=== PATIENT | male | born 1995 | race Caucasian/White ===

== ENCOUNTER 2018-11-10 16:41 | Observation (INO) | payer OTHER ==
[~2018-11-10] VITALS: Ht 177.8 cm; Wt 58.6 kg
[2018-11-10] MEDS ORDERED: ONDANSETRON 4 MG INJ IV STA (17:58)
[2018-11-10] MEDS ORDERED: LACTATED RINGER'S 1,000 ML IV STA (17:58)
[2018-11-10] MEDS ORDERED: morphine 4 MG/ML VIAL IV STA (17:58)
[2018-11-10] MEDS ORDERED: METHYLPREDNISOLONE 125 MG INJ IV ONE (18:00)
--- NOTE | 2018-11-10 21:44 | ERD ---
ER Documentation Chief Complaint Chief Complaint Pt has rectal bleed x 3-4 days and has hx of ulcerative collitis HPI This is a 23-year-old man complaining of 2 weeks of increasing abdominal pain and cramping and increasing frequency of bloody stools. Patient was diagnosed with ulcerative colitis about 8 months ago and has been compliant with budesonide and mesalamine daily. States his stools are usually brown in color but recently he has had blood per rectum with most every bowel movement. His primary glass ribbon machine operator is Dr. Goodman, who he contacted and was referred here to the ED for inpatient management and possible colonoscopy. Patient denies fevers or chills, no chest pain or shortness of breath, no vomiting, no headache or blurry vision. ROS All systems reviewed and are negative except as per history of present illness. Allergies Allergies: Coded Allergies: No Known Allergy (Unverified , 11/10/18) PMhx/Soc History of Surgery: No Anesthesia Reaction: No Hx Neurological Disorder: No Hx Respiratory Disorders: No Hx Cardiac Disorders: No Hx Psychiatric Problems: No Hx Miscellaneous Medical Probl: Yes (ULCERATIVE COLITIS) Hx Alcohol Use: No Hx Substance Use: No Hx Tobacco Use: No Smoking Status: Never smoker FmHx Family History: No diabetes Physical Exam Vitals Vital Signs Date Temp Pulse Resp B/P (MAP) Pulse Ox O2 O2 Flow FiO2 Time Delivery Rate 11/10/18 100.1 89 14 108/71 100 Room Air 21:21 (83) 11/10/18 100.1 90 14 98/63 (75) 100 Room Air 20:17 11/10/18 100.1 94 14 110/74 100 Room Air 19:03 (86) 11/10/18 100.1 97 20 114/82 99 Room Air 17:57 (93) 11/10/18 100.1 104 20 111/73 99 16:56 (86) Physical Exam GENERAL: Well-developed, well-nourished, well-hydrated, moderate discomfort, afebrile CARDIAC: Regular rate and rhythm, no murmurs rubs or gallops LUNGS: Clear bilaterally no wheezing crackles or stridor ABDOMEN: Superficial tenderness over the entire abdomen with voluntary guarding, no rigidity or masses, no psoas sign, no obturator sign SKIN: Warm and dry to touch, no abrasions, contusions, or hematomas, no lacerations, no ecchymosis, no target lesions, and without ulcers EXTREMITIES: No clubbing cyanosis or edema, calves are bilaterally symmetrical, no Homans sign, no popliteal cord sign. Distal pulses equal and bilateral PSYCH: Normal affect without agitation or irritability Result Diagram: 11/10/18 1755 11/10/181754 Results 24 hrs Laboratory Tests Test 11/10/18 17:55 White Blood Count 9.7 10^3/ul Red Blood Count 4.97 10^6/ul Hemoglobin 14.5 g/dl Hematocrit 41.2 % Mean Corpuscular Volume 82.9 fl Mean Corpuscular Hemoglobin 29.2 pg Mean Corpuscular Hemoglobin Concent 35.2 g/dl Red Cell Distribution Width 13.3 % Platelet Count 209 10^3/UL Mean Platelet Volume 11.5 fl Immature Granulocytes % 0.300 % Neutrophils % 68.5 % Lymphocytes % 18.5 % Monocytes % 11.8 % Eosinophils % 0.5 % Basophils % 0.4 % Nucleated Red Blood Cells % 0.0 /100WBC Immature Granulocytes # 0.030 10^3/ul Neutrophils # 6.7 10^3/ul Lymphocytes # 1.8 10^3/ul Monocytes # 1.2 10^3/ul Eosinophils # 0.1 10^3/ul Basophils # 0.0 10^3/ul Nucleated Red Blood Cells # 0.0 10^3/ul Prothrombin Time 14.5 Sec Prothrombin Time Ratio 1.1 INR International Normalized Ratio 1.12 Activated Partial Thromboplast Time 36.9 Sec Sodium Level 139 mmol/L Potassium Level 3.9 mmol/L Chloride Level 102 mmol/L Carbon Dioxide Level 28 mmol/L Anion Gap 9 Blood Urea Nitrogen 9 mg/dl Creatinine 0.73 mg/dl Est Glomerular Filtrat Rate mL/min > 60 mL/min Glucose Level 83 mg/dl Calcium Level 9.7 mg/dl Total Bilirubin 0.7 mg/dl Direct Bilirubin 0.00 mg/dl Indirect Bilirubin 0.7 mg/dl Aspartate Amino Transf (AST/SGOT) 19 IU/L Alanine Aminotransferase (ALT/SGPT) 20 IU/L Alkaline Phosphatase 51 IU/L Total Protein 7.5 g/dl Albumin 4.2 g/dl Globulin 3.30 g/dl Albumin/Globulin Ratio 1.27 Lipase 56 U/L Current Medications Medications Dose Sig/Talib Start Time Status Last (Trade) Ordered Route PRN Stop Time Admin Dose Reason Admin 125 mg ONCE ONCE 11/10/18 DC 11/10/18 Methylprednis IV 18:00 18:04 olone Sodium 11/10/18 18:01 Succinate (Solu-Medrol) Lactated 1,000 ml @ Q1H STAT 11/10/18 DC 11/10/18 Ringer's 1,000 mls/hr IV 17:58 18:04 11/10/18 18:57 Morphine 4 mg ONCE STAT 11/10/18 DC 11/10/18 Sulfate IV 17:58 18:04 (morphine) 11/10/18 17:59 Ondansetron 4 mg ONCE STAT 11/10/18 DC 11/10/18 HCl (Zofran IV 17:58 18:04 Inj) 11/10/18 17:59 Procedures/MDM IV line was established patient was placed on playground monitor rhythm strip revealed a sinus rhythm at about 80 bpm with upright P and T waves. Patient was afebrile I administered 1 L LR IV x1, morphine 4 mg IV, Zofran 4 mg IV, methylprednisolone 125 mg IV x1 I spoke to the patient's primary GI Dr. Goodman regarding the patient's presentation and symptomatology, he kindly agreed to consult the patient after admission. I placed the consult order. CBC and electrolytes are normal, liver function tests were normal. [facility] Departure Diagnosis: Primary Impression: Rectal hemorrhage Additional Impressions: Ulcerative colitis, acute Digestive disease complication type: with rectal bleeding Qualified Codes: K51.911 - Ulcerative colitis, unspecified with rectal bleeding Intractable abdominal pain Condition: NAE Nieves MD Nov 10, 2018 21:44
[2018-11-10 22:48] VITALS: BP 109/60; PULSE 76; RESP 18
[2018-11-10 23:04] VITALS: Ht 177.8 cm; Wt 58.6 kg
[2018-11-10] MEDS: morphine 2 MG INJ IV PRN (23:22)
[2018-11-10] MEDS: ONDANSETRON 4 MG INJ IV PRN (23:22)
[2018-11-10] MEDS: DEXTROSE 5%-0.45% NACL 1,000 ML IV SCH (23:22)
[2018-11-10] MEDS: METHYLPREDNISOLONE 125 MG INJ IV SCH (23:24)
[2018-11-11] MEDS: morphine 2 MG INJ IV PRN ×4 (01:41→14:53)
[2018-11-11 02:30] VITALS: BP 94/55; PULSE 77; RESP 18
[2018-11-11] MEDS: ONDANSETRON 4 MG INJ IV PRN ×2 (06:26→12:14)
[2018-11-11] MEDS: METHYLPREDNISOLONE 125 MG INJ IV SCH ×3 (06:26→12:14)
[2018-11-11 08:14] VITALS: BP 108/61; PULSE 65; RESP 18
[2018-11-11] MEDS: MESALAMINE (EC) 400 MG CAP PO SCH ×2 (08:27→13:00)
[2018-11-11] MEDS: DEXTROSE 5%-0.45% NACL 1,000 ML IV SCH (11:03)
[2018-11-11] MEDS ORDERED: PRED20TA PO (12:03)
[2018-11-11] MEDS ORDERED: PANT40TA3 PO (12:03)
--- NOTE | 2018-11-11 12:04 | PDOCDIS ---
Discharge Instructions CONDITION Oxfey5Wv Patient Condition: Ojays3b Good HOME CARE INSTRUCTIONS: Banic5Px Diet Instructions: Zhtne7y Regular ACTIVITY: [id number] Activity Restrictions: [id number] No Restrictions FOLLOW UP/APPOINTMENTS Follow-up Plan pcp [address] Goodman 3 days GRISEL LEE MD Nov 11, 2018 12:04
--- NOTE | 2018-11-11 13:35 | CONS ---
Assessment/Plan Assessment/Plan Assessment/Plan (Daily) Assessment: Abdominal pain likely secondary to Ulcerative colitis flare Hx of ulcerative colitis Plan: Ok for discharge home from GI perspective on oral steroids and close outpatient follow up. Please discharge on oral prednisone 40 mg daily x2 weeks as planned. He will keep follow up appointment with Dr. Goodman on Tuesday as previously scheduled. Patient seen in collaboration with Dr. Goodman. CC: YURI GOODMAN MD ; Consultation Date/Type/Reason Admit Date/Time Nov 10, 2018 at 22:47 Date of Consultation: Nov 11, 2018 Type of Consult gastroenterology Reason for Consultation ulcerative colitis flare up Requesting Provider: GRISEL LEE MD Date/Time of Note DATE: 11/11/18 TIME: 13:27 Hx of Present Illness 23 y/o male with a history of ulcerative colitis diagnosed by colonoscopy 03/2018, currently followed as outpatient by Dr. Goodman, on entecort and mesalamine. He has a follow up appointment with Dr. Goodman on Tuesday, though developed severe abdominal and rectal pain associated with loose bloody stools and chills. He was found to have a low grade fever on admission of 100F, no leukocytosis. He denies nausea or vomiting. He was admitted to the hospital and given steroids and pain medication. He is otherwise healthy, denies any shortness of breath chest pain, palpitations. A 10 point review of systems is otherwise negative except as mentioned in the above HPI. Past Medical History Home Meds Active Scripts Pantoprazole* (Protonix*) 40 Mg Tablet.dr, 40 MG PO DAILY for 30 Days, TAB Prov:GRISEL LEE MD 11/11/18 Prednisone* (Prednisone*) 20 Mg Tab, 40 MG PO DAILY for 14 Days, TAB Prov:GRISEL LEE MD 11/11/18 Medications Current Medications Methylprednisolone Sodium Succinate (Solu-Medrol) 60 mg Q6 IV Last administered on 11/11/18at 12:14; Admin Dose 60 MG; Start 11/11/18 at 00:00 Morphine Sulfate (morphine) 2 mg Q3 PRN IV moderate pain Last administered on 11/11/18at 11:03; Admin Dose 2 MG; Start 11/10/18 at 22:30 Mesalamine (Delzicol ) 800 mg TID PO ; Start 11/11/18 at 09:00 Dextrose/Sodium Chloride 1,000 ml @ 80 mls/hr [id number] IV Last administered on 11/11/18at 11:03; Admin Dose 80 MLS/HR; Start 11/10/18 at 22:30 Ondansetron HCl (Zofran Inj) 4 mg Q4 PRN IV nausea Last administered on 11/11/18at 12:14; Admin Dose 4 MG; Start 11/10/18 at 22:30 Allergies: Coded Allergies: No Known Allergy (Unverified , 11/10/18) Past Surgical History Past Surgical Hx: no surgical history Family History Significant Family History: no pertinent family hx Social History Alcohol Use: none Smoking Status: Never smoker Exam/Review of Systems Exam Vitals Vital Signs Date Temp Pulse Resp B/P (MAP) Pulse Ox O2 O2 Flow FiO2 Time Delivery Rate 11/11/18 97.9 65 18 108/61 98 Room Air 08:14 (77) Intake and Output 11/10/18 11/10/18 11/11/18 1515:00 23:00 07:00 IntakeIntake Total 430 ml BalanceBalance 430 ml Constitutional: alert, oriented, well developed Psych: no complaints Head: normocephalic Eyes: nl conjunctiva, EOMI ENMT: nl external ears & nose, nl lips & teeth, nl nasal mucosa & septum Neck: supple, non-tender Respiratory: clear to auscultation, normal air movement Cardiovascular: regular rate and rhythm, nl pulses Gastrointestinal: soft, nl liver, spleen, non-tender Genitourinary - Male: nl penis, nl scrotum Musculoskeletal: nl extremities to inspection, nl gait and stance Neurological: PIZZAMAKER II-XII intact, nl mental status Results Result Diagram: 11/10/18 1755 11/10/18 175 Results 24hrs Laboratory Tests Test 11/10/18 17:55 White Blood Count 9.7 Red Blood Count 4.97 Hemoglobin 14.5 Hematocrit 41.2 L Mean Corpuscular Volume 82.9 Mean Corpuscular Hemoglobin 29.2 Mean Corpuscular Hemoglobin Concent 35.2 Red Cell Distribution Width 13.3 Platelet Count 209 Mean Platelet Volume 11.5 H Immature Granulocytes % 0.300 Neutrophils % 68.5 Lymphocytes % 18.5 Monocytes % 11.8 H Eosinophils % 0.5 Basophils % 0.4 Nucleated Red Blood Cells % 0.0 Immature Granulocytes # 0.030 Neutrophils # 6.7 Lymphocytes # 1.8 Monocytes # 1.2 H Eosinophils # 0.1 Basophils # 0.0 Nucleated Red Blood Cells # 0.0 Prothrombin Time 14.5 Prothrombin Time Ratio 1.1 INR International Normalized Ratio 1.12 Activated Partial Thromboplast Time 36.9 H Sodium Level 139 Potassium Level 3.9 Chloride Level 102 Carbon Dioxide Level 28 Anion Gap 9 Blood Urea Nitrogen 9 Creatinine 0.73 Est Glomerular Filtrat Rate mL/min > 60 Glucose Level 83 Calcium Level 9.7 Total Bilirubin 0.7 Direct Bilirubin 0.00 Indirect Bilirubin 0.7 Aspartate Amino Transf (AST/SGOT) 19 Alanine Aminotransferase (ALT/SGPT) 20 Alkaline Phosphatase 51 Total Protein 7.5 Albumin 4.2 Globulin 3.30 H Albumin/Globulin Ratio 1.27 Lipase 56 Medications Medication Current Medications Methylprednisolone Sodium Succinate (Solu-Medrol) 60 mg Q6 IV Last administered on 11/11/18 12:14; Admin Dose 60 MG; Start 11/11/18 at 00:00 Morphine Sulfate (morphine) 2 mg Q3 PRN IV moderate pain Last administered on 11/11/18 11:03; Admin Dose 2 MG; Start 11/10/18 at 22:30 Mesalamine (Delzicol Dr) 800 mg TID PO ; Start 11/11/18 at 09:00 Dextrose/Sodium Chloride 1,000 ml @ 80 mls/hr [id number] IV Last administered on 11/11/18 11:03; Admin Dose 80 MLS/HR; Start 11/10/18 at 22:30 Ondansetron HCl (Zofran Inj) 4 mg Q4 PRN IV nausea Last administered on 11/11/18 12:14; Admin Dose 4 MG; Start 11/10/18 at 22:30 EMMA MACK NP Nov 11, 2018 13:35
[2018-11-11 14:19] VITALS: BP 109/56; PULSE 61; RESP 17
--- NOTE | 2018-11-11 15:01 | HP ---
DATE OF ADMISSION: 11/10/2018 CHIEF COMPLAINT: Abdominal pain and occasional bright red blood per rectum. HISTORY OF PRESENT ILLNESS: A 27-year-old male with history of ulcerative colitis diagnosed in 04/04 18, presents to Emergency Room with complaint of 2 weeks of increasing abdominal pain and cramping as sociated with occasional bright red blood per rectum. The patient has been tolerating oral intake. He denies any nausea or vomiting. His pain is however worse than when he was first diagnosed with ul cerative colitis. Initial evaluation was fairly unremarkable. LABORATORY DATA: Hemoglobin was 14.5. White blood cell count was 9.7 and basic metabolic panel was within normal limits. Albumin was 4.1, lipase was 56. PAST MEDICAL HISTORY: Ulcerative colitis. MEDICATIONS PRIOR TO ADMISSION: 1. Mesalamine. 2. Entocort. SOCIAL HISTORY: The patient lives at home. He is . He denies tobacco or alcohol use. PHYSICAL EXAMINATION: GENERAL: Well-developed, well-nourished male who is in no apparent distress. VITAL SIGNS: Stable. He is afebrile. HEENT: Extraocular muscles intact. Pupils are equal and reactive to light bilaterally. Sclerae are anicteric. Oropharynx is clear and moist. NECK: Supple, no JVD, no carotid bruits. LUNGS: Clear to auscultation bilaterally. CARDIAC: Regular rate and rhythm. No murmurs, rubs or gallops. ABDOMEN: Soft, nontender, nondistended. Normoactive bowel sounds. EXTREMITIES: No clubbing, cyanosis, or edema. NEUROLOGICAL: Nonfocal. ASSESSMENT: 1. A 23-year-old male with ulcerative colitis flare. 2. Occasional bright red blood per rectum with no significant change in hemoglobin. PLAN: 1. Admit to med/surg. 2. Continue IV Solu-Medrol. 3. Resume mesalamine. 4. Tapering dose of prednisone. 5. Case was discussed with Dr. Goodman. 6. The patient will be evaluated by GI prior to discharge. Dictated By: GRISEL WATKINS/RUBENS Conf#: [id number] DID#: [id number] CC: YURI GOODMAN;*EndCC*
== END 2018-11-11 16:01 | disposition home or self-care (01) ==
LOC: E/R 16:41 → PP2 22:47
PROVIDERS: ADMIT Internal Medicine; ATTEND Internal Medicine
DX: K51.90 Ulcerative colitis, unspecified, without complications (principal); K62.5 Hemorrhage of anus and rectum
CPT/HCPCS: 36415; 80053; 83690; 85025; 85610; 85730; 96374; 96375; J2270; J2405; J2930; J7042; J7120; Z7500; Z7502; Z7610; G0378

== ENCOUNTER 2018-12-11 22:36 | Emergency (ER) | payer OTHER ==
[~2018-12-11] VITALS: Ht 177.8 cm; Wt 56.9 kg
[~2018-12-11 22:36] MED LIST: BUDE3CAP PO; HYDR-3980 PO; PANT40TA3 PO; PRED20TA PO
[2018-12-11 22:40] VITALS: Ht 177.8 cm; Wt 56.9 kg
[2018-12-11] MEDS ORDERED: SOD CHLORIDE 0.9% 1,000 ML IV STA (23:58)
[2018-12-12] MEDS ORDERED: morphine 4 MG/ML VIAL IV STA (00:07)
[2018-12-12] MEDS ORDERED: ONDANSETRON 4 MG INJ IV STA (00:07)
[2018-12-12] MEDS ORDERED: METHYLPREDNISOLONE 125 MG INJ IV ONE (00:30)
[2018-12-12 00:40] VITALS: BP 112/89; PULSE 99; RESP 18
--- NOTE | 2018-12-12 01:51 | ERD ---
ER Documentation Chief Complaint Chief Complaint RECTAL BLEEDING AND AP X 4 DAYS. HPI This is a very pleasant 23-year-old male history of ulcerative colitis comes in with rectal bleeding and abdominal pain for the past 4 days. Pain is mild to moderate intensity with no exacerbating alleviating factors. Denies any fevers or chills. Denies any other current issues ROS All systems reviewed and are negative except as per history of present illness. Medications Home Meds Active Scripts Pantoprazole* (Protonix*) 40 Mg Tablet.dr, 40 MG PO DAILY for 30 Days, TAB Prov:GRISEL LEE MD 11/11/18 Prednisone* (Prednisone*) 20 Mg Tab, 40 MG PO DAILY for 14 Days, TAB Prov:GRISEL LEE MD 11/11/18 Allergies Allergies: Coded Allergies: No Known Allergy (Unverified , 11/10/18) PMhx/Soc History of Surgery: No Anesthesia Reaction: No Hx Neurological Disorder: No Hx Respiratory Disorders: No Hx Cardiac Disorders: No Hx Psychiatric Problems: No Hx Miscellaneous Medical Probl: Yes (ulcerative colitis dx'd 03/17/18) Hx Alcohol Use: No Hx Substance Use: Yes (marijuana daily for sx's control) Hx Tobacco Use: No (age 89-18) Smoking Status: Former smoker Physical Exam Vitals Vital Signs Date Temp Pulse Resp B/P (MAP) Pulse Ox O2 O2 Flow FiO2 Time Delivery Rate 12/12/18 99.9 99 18 112/89 100 Room Air 00:40 (97) 12/11/18 99.9 97 22 114/74 98 22:40 (87) Physical Exam Const: No acute distress Head: Atraumatic Eyes: Normal Conjunctiva ENT: Normal External Ears, Nose and Mouth. Neck: Full range of motion. No meningismus. Resp: Clear to auscultation bilaterally Cardio: Regular rate and rhythm, no murmurs Abd: Soft, non tender, non distended. Normal bowel sounds Skin: No petechiae or rashes Back: No midline or flank tenderness Ext: No cyanosis, or edema Neur: Awake and alert Psych: Normal Mood and Affect Result Diagram: 12/12/183512/12/1835 Results 24 hrs Laboratory Tests Test 12/12/18 00:36 12/12/18 00:38 White Blood Count 4.8 10^3/ul Red Blood Count 4.74 10^6/ul Hemoglobin 13.5 g/dl Hematocrit 40.6 % Mean Corpuscular Volume 85.7 fl Mean Corpuscular Hemoglobin 28.5 pg Mean Corpuscular Hemoglobin Concent 33.3 g/dl Red Cell Distribution Width 13.1 % Platelet Count 193 10^3/UL Mean Platelet Volume 11.4 fl Immature Granulocytes % 0.400 % Neutrophils % 60.3 % Lymphocytes % 25.8 % Monocytes % 12.7 % Eosinophils % 0.4 % Basophils % 0.4 % Nucleated Red Blood Cells % 0.0 /100WBC Immature Granulocytes # 0.020 10^3/ul Neutrophils # 2.9 10^3/ul Lymphocytes # 1.2 10^3/ul Monocytes # 0.6 10^3/ul Eosinophils # 0.0 10^3/ul Basophils # 0.0 10^3/ul Nucleated Red Blood Cells # 0.0 10^3/ul Prothrombin Time 14.4 Sec Prothrombin Time Ratio 1.1 INR International Normalized Ratio 1.11 Activated Partial Thromboplast Time 36.3 Sec Sodium Level 140 mmol/L Potassium Level 3.7 mmol/L Chloride Level 102 mmol/L Carbon Dioxide Level 29 mmol/L Anion Gap 9 Blood Urea Nitrogen 11 mg/dl Creatinine 0.73 mg/dl Est Glomerular Filtrat Rate mL/min > 60 mL/min Glucose Level 135 mg/dl Calcium Level 9.7 mg/dl Total Bilirubin 0.8 mg/dl Direct Bilirubin 0.00 mg/dl Indirect Bilirubin 0.8 mg/dl Aspartate Amino Transf (AST/SGOT) 20 IU/L Alanine Aminotransferase (ALT/SGPT) 23 IU/L Alkaline Phosphatase 54 IU/L Total Protein 7.0 g/dl Albumin 4.1 g/dl Globulin 2.90 g/dl Albumin/Globulin Ratio 1.41 Lipase 69 U/L Urine Color STRAW Urine Clarity CLEAR Urine pH 6.0 Urine Specific [place] 1.005 Urine Ketones NEGATIVE mg/dL Urine Nitrite NEGATIVE mg/dL Urine Bilirubin NEGATIVE mg/dL Urine Urobilinogen NEGATIVE mg/dL Urine Leukocyte Esterase NEGATIVE Patricia/ul Urine Microscopic RBC 1 /HPF Urine Microscopic WBC 1 /HPF Urine Hemoglobin 1+ mg/dL Urine Glucose NEGATIVE mg/dL Urine Total Protein NEGATIVE mg/dl Current Medications Medications Dose Sig/Talib Start Time Status Last (Trade) Ordered Route PRN Stop Time Admin Dose Reason Admin Sodium 1,000 ml @ Q1H STAT 7/29/19 DC 12/12/18 Chloride 1,000 mls/hr IV 23:58 00:39 12/12/18 00:57 Morphine 4 mg ONCE STAT 12/12/18 DC 12/12/18 Sulfate IV 00:07 00:40 (morphine) 12/12/18 00:08 Ondansetron 4 mg ONCE STAT 12/12/18 DC 12/12/18 HCl (Zofran IV 00:07 00:40 Inj) 12/12/18 00:08 125 mg ONCE ONCE 12/12/18 DC 12/12/18 Methylprednis IV 00:30 00:40 olone Sodium 12/12/18 00:31 Succinate (Solu-Medrol) Procedures/MDM Emergency department course: Patient seen and evaluated. Given fluid bolus. Given dose of Solu-Medrol. Given pain medications. Patient's pain is completely resolved. Serial exams here in the ER was stable with no evidence of surgical abdomen on multiple examinations. Medical decision making: Patient's gastrointestinal symptoms have stabilized while in the department. No evidence of severe dehydration, sepsis, or surgical abdomen. Extensive discussion with family and patient that occult disease cannot be ruled out. 8 hour recheck for repeat abdominal exam is planned. Departure Diagnosis: Primary Impression: Ulcerative colitis, acute Digestive disease complication type: unspecified complication Qualified Codes: K51.919 - Ulcerative colitis, unspecified with unspecified complications Condition: Stable PAYTON MCCLURE Dec 12, 2018 01:51
== END 2018-12-12 04:31 | disposition home or self-care (01) ==
LOC: E/R 22:36
DX: K51.919 Ulcerative colitis, unspecified with unspecified complications (principal); Z87.891 Personal history of nicotine dependence
CPT/HCPCS: 80053; 81001; 83690; 85025; 85610; 85730; J2270; J2405; J2930; J7030; 36415; 96374; 96375